=== PATIENT | female | born 1980 | race Caucasian/White ===

== ENCOUNTER 2017-01-18 01:25 | Emergency (ER) | payer OTHER ==
[~2017-01-18 01:25] MED LIST: AMBIEN10 M1 PO; AMITIZA8 MC1 PO; AMITRIPTYLINE H25 M1 PO; AMOXICILLIN500 M2 PO; ATIVAN0.5 M1 PO; AUGMENTIN 875-1 EAC2 PO; BACTRIM DS TAB1 EAC2 PO; BENTYL10 M1 PO; BENTYL20 M1 PO; CLARITIN10 M6 PO; COLACE100 M1 PO; CYCLOBENZAPRINE10 M1 PO; DELTASONE20 MG PO; DEPRESSION/ANXIETY; ESTRACE2 M2 PO; ESTRADIOL0.5 M2 PO; ESTRADIOL2 M1 PO; GOLYTELY S4000 ML/EA PO; IBUPROFEN800 M1 PO; LEXAPRO10 M2 PO; LINZESS145 MC1 PO; MULTIVITAMINS1 EAC6 PO; NAPROXEN500 M1 PO; NORCO 5-325 TA1 EACH PO; OMEPRAZOLE40 M2 PO; PROAIR HFA8.5 GM IH; PROBIOTIC1 EAC6 PO; PROMETHAZINE HC25 M3 PO; TYLENOL325 M2 PO; ULTRAM50 M1 PO; VANDAZOLE PV; ZOFRAN ODT4 MG PO; ZOFRAN4 M2 PO; ZOLOFT100 M1 PO; [UNRECOGNIZED DRUG - OTHER] PO
[2017-01-18] MEDS ORDERED: NEURONTIN100 M1 PO (02:22)
[2017-01-18] MEDS ORDERED: NEURONTIN300 M1 PO (02:22)
[2017-01-18] MEDS ORDERED: COLACE100 M1 PO (02:23)
[2017-01-18] MEDS ORDERED: FIBER (02:23)
== END 2017-01-18 03:20 ==
LOC: EDMED 01:25
DX: Z48.89 Encounter for other specified surgical aftercare (principal); Z91.041 Radiographic dye allergy status; Z88.5 Allergy status to narcotic agent; Z88.8 Allergy status to other drugs, medicaments and biological substances

== ENCOUNTER 2017-03-07 01:44 | Emergency (ER) | payer OTHER ==
[~2017-03-07 01:44] MED LIST changes: +FIBER; +NEURONTIN100 M1 PO; +NEURONTIN300 M1 PO
== END 2017-03-07 04:12 ==
LOC: EDMED 01:44
DX: G43.909 Migraine, unspecified, not intractable, without status migrainosus (principal); F32.9 Major depressive disorder, single episode, unspecified; F41.9 Anxiety disorder, unspecified; Z88.1 Allergy status to other antibiotic agents; Z91.041 Radiographic dye allergy status; Z88.5 Allergy status to narcotic agent; Z79.899 Other long term (current) drug therapy
CPT/HCPCS: J1200; J1885; J2765; J7030